=== PATIENT | female | born 1980 | race Caucasian/White ===

== ENCOUNTER 2019-12-11 05:33 | Outpatient (CLI) | payer BC ==
[~2019-12-11] VITALS: Ht 182.9 cm; Wt 100.0 kg
[~2019-12-11 05:33] MED LIST: CEFD300C3 PO; CITA40TA11 PO; CTLP20T PO; DOCU100C37 PO; FERR-57 PO; HYDR-3720 PO; IBUP-1780 PO; OXYC-465 PO; birth control PO
== END 2019-12-11 15:05 | disposition home or self-care (01) ==
LOC: PREOP 05:33
PROVIDERS: ATTEND Obstetrics & Gynecology
DX: Z01.818 Encounter for other preprocedural examination (principal)

== ENCOUNTER 2019-12-14 10:54 | Day surgery (SDC) | payer BC ==
[2019-12-14] VITALS (8 sets, daily range): BP systolic 107–123; BP diastolic 66–82
[~2019-12-14] VITALS: Ht 182.9 cm; Wt 100.0 kg
[2019-12-14] MEDS ORDERED: WATER (STERILE) FOR INJECTION 10 ML ONE (11:20)
[2019-12-14] MEDS ORDERED: ceFAZolin INJECTION 1,000 MG ONE (11:20)
[2019-12-14] MEDS ORDERED: LACTATED RINGERS 1,000 ML IV PRN (11:25)
[2019-12-14 11:27] LABS: BASOPHILS % (AUTO) 0 % (0-10); EOSINOPHILS # (AUTO) 0.1 10^3/uL (0.0-0.3); EOSINOPHILS % (AUTO) 1 % (0-10); HEMATOCRIT 40 % (35-52); HEMOGLOBIN 13.5 G/DL (11.5-16.0); LYMPHOCYTES # (AUTO) 2.1 X 10^3 (1.0-4.0); LYMPHOCYTES % (AUTO) 27 % (12-44); MEAN CORPUSCULAR HEMOGLOBIN 31 PG (25-34); MEAN CORPUSCULAR HGB CONC 34 G/DL (32-36); MEAN CORPUSCULAR VOLUME 91 FL (80-99); MEAN PLATELET VOLUME 10.3 FL (7.4-10.4); MONOCYTES # (AUTO) 0.9 X 10^3 (0.0-1.0); MONOCYTES % (AUTO) 11 % (0-12); NEUTROPHILS # (AUTO) 4.6 X 10^3 (1.8-7.8); NEUTROPHILS % (AUTO) 61 % (42-75); PLATELET COUNT 214 10^3/uL (130-400); WHITE BLOOD COUNT 7.6 10^3/uL (4.3-11.0)
[2019-12-14] MEDS ORDERED: ceFAZolin INJECTION 1,000 MG in WATER (STERILE) FOR INJECTION 10 ML IV ONE (11:30)
[2019-12-14] MEDS ORDERED: ceFAZolin 1,000 MG/SWFI 10 ML IV PUSH IV ONE ×2 (11:30)
[2019-12-14] MEDS ORDERED: ONDANSETRON 4 MG/2 ML (SDV) Z0FRAN ONE (11:58)
[2019-12-14] MEDS ORDERED: fentaNYL INJECTION 100 MCG/2 ML AMP ONE (11:58)
[2019-12-14] MEDS ORDERED: LIDOCAINE PF 2% 5 ML (XYLOCAINE) VIAL ONE (11:58)
[2019-12-14] MEDS ORDERED: proPOfol 200 MG/20 ML (DIPRIVAN) VIAL IV ONE ×2 (11:58→14:44)
[2019-12-14] MEDS ORDERED: SEVOFLURANE (ULTANE) 15 ML INHAL SOLN ONE (11:58)
[2019-12-14] MEDS ORDERED: MIDAZOLAM 2 MG/2 ML (VERSED) VIAL ONE (11:58)
[2019-12-14] MEDS ORDERED: FAMOTIDINE 20MG/2ML IV (PEPCID) IVP ONE (12:00)
[2019-12-14] MEDS ORDERED: ONDANSETRON 4 MG/2 ML (SDV) Z0FRAN IVP ONE (12:00)
[2019-12-14] MEDS ORDERED: SCOPOLAMINE 1.5 MG (TRANSDERM-SCOP) PATCH TD ONE (12:00)
--- OUTSIDE RECORDS SUMMARY | 2019-12-14 12:50 | XMS REPORT | Continuity of Care Document ---
Author Organization Unknown Address Unknown Phone Unavailable Allergies Active Description Code Type Severity Reaction Onset Reported/Identified Relationship to Patient Clinical Status Yes NO KNOWN DRUG ALLERGIES UNKNOWN NO KNOWN DRUG ALLERG Yes NO KNOWN DRUG ALLERGIES UNKNOWN UNKNOWN Yes No Known Drug Allergies [id number] Drug Allergy Unknown N/A 08/05/2009 Medications Medication Packaging Start Date St op Date Route Dosage Sig FENTANYL INJ 100 MCG/2CC VIAL MCG 03/27/2018 03/27/2018 ONCE&0814 Ondansetron 4mg oral DissolveTab (Zofran) MG 03/27/2018 03/27/2018 PRN ONCE NORMAL SALINE 1000CC IV BAG INJ 0.9 % (NS 1000CC IV BAG) ml 03/27/2018 03/27/2018 ONCE&0920 TETANUS,DIPTH,PERT ADULT INJ 0 (ADACEL SYRINGE) ml 05/10/2018 05/10/2018 ONCE&0819 ONDANSETRON VIAL INJ 4 MG/2CC (ZOFRAN 2CC VIAL) MG 05/18/2018 05/18/2018 PRN ONCE NORMAL SALINE 1000CC IV BAG INJ 0.9 % (NS 1000CC IV BAG) ml 05/18/2018 06/02/2018 CONTINUOUSEVERY 0 Hour KETOROLAC VIAL INJ 30 MG/CC (TORADOL VIAL) MG 05/18/2018 05/18/2018 PRN ONCE FENTANYL INJ 100 MCG/2CC VIAL MCG 05/18/2018 05/18/2018 ONCE&1815 NORMAL SALINE 1000CC IV BAG INJ 0.9 % (NS 1000CC IV BAG) ml 05/18/2018 06/02/2018 CONTINUOUSEVERY 0 Hour Problems Date Dx Coded Attending Type Code Diagnosis Diagnosed By 08/07/2009 Ot 642.41 MIL D/NOS PREECLAMP-DELIV 08/07/2009 Ot 644.21 EAR LY ONSET DELIVERY-DEL 08/07/2009 Ot 651.01 TWI N - DELIVERED 08/07/2009 Ot V27.2 DELI MADONNA-TWINS, BOTH LIVE 01/30/2016 ANA LAURA RODRIGUEZ MD, Ot M53. 3 SACROCOCCYGEAL DISORDERS, NOT ELSEWHERE 01/30/2016 ANA LAURA RODRIGUEZ MD, Ot Z79.899 OTHER GIS COORDINATOR (CURRENT) DRUG THERAPY 02/02/2016 Ot 626.8 MENS TRUAL DISORDER NEC 02/02/2016 Ot V64.3 NO P YAMILKA FOR REASONS NEC 02/02/2016 Ot 621.0 POLY P OF CORPUS UTERI 02/02/2016 Ot 626.8 MENS TRUAL DISORDER NEC 02/02/2016 ALEJANDRINA GUADALUPE MD, Ot 626.2 EXCESSIVE MENSTRUATION 02/02/2016 ALEJANDRINA GUADALUPE MD, Ot 626.8 MENSTRUAL DISORDER NEC 02/12/2016 ANA LAURA RODRIGUEZ MD, Ot M53. 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 03/20/2016 ALEJANDRINA GUADALUPE MD, Ot N83.201 UNSPECIFIED OVARIAN CYST, RIGHT SIDE 03/20/2016 ALEJANDRINA GUADALUPE MD Ot N92.0 EXCESSIVE AND FREQUENT MENSTRUATION WITH 03/20/2016 ALEJANDRINA GUADALUPE MD Ot N93.8 OTHER SPECIFIED ABNORMAL UTERINE AND VAG 03/23/2016 ALEJANDRINA GUADALUPE MD, Ot N80.1 ENDOMETRIOSIS OF OVARY 03/23/2016 ALEJANDRINA GUADALUPE MD, Ot 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 03/23/2016 ALEJANDRINA GUADALUPE MD, Ot N83.201 UNSPECIFIED OVARIAN CYST, RIGHT SIDE 03/23/2016 ALEJANDRINA GUADALUPE MD, Ot N92.0 EXCESSIVE AND FREQUENT MENSTRUATION WITH 03/23/2016 COLLINS YANCEY, ALEJANDRINA Schwartz Ot N93.8 OTHER SPECIFIED ABNORMAL UTERINE AND VAG 03/27/2018 Juan Jose Shaffer 813.05 FRACTURE OF HEAD OF RADIUS, CLOSED 03/27/2018 Juan Jose Shaffer S52.122A DISP FX OF HEAD OF LEFT RADIUS, INIT FOR CLOS FX 05/10/2018 LEISURE, JOSE W 681.00 CELLULITIS AND ABSCESS OF FINGER, UNSPECIFIED 05/10/2018 LEISURE, JOSE W 686.9 UNSPECIFIED LOCAL INFECTION OF SKIN AND SUBCUTANEOUS TISSUE 05/10/2018 LEISURE, JOSE W 879.8 OPEN WOUND(S) (MULTIPLE) OF UNSPECIFIED SITE(S) EXCEPT LIMBS, WITHOUT MENTION OF COMPLICATION 05/10/2018 LEISURE, JOSE W 883.0 OPEN WOUND OF FINGERS, WITHOUT MENTION OF COMPLICATION 05/10/2018 LEISURE, JOSE Cochran E906.3 BITE OF OTHER ANIMAL EXCEPT ARTHROPOD 05/10/2018 LEISURE, JOSE Cochran L03.01 1 CELLULITIS OF RIGHT FINGER 05/10/2018 LEISURE, JOSE W L08.9 LOCAL INFECTION OF THE SKIN AND SUBCUTANEOUS TISSUE, UNSPECIFIED 05/10/2018 LEISURE, JOSE Cochran S61.25 6A OPEN BITE OF RIGHT LITTLE FINGER W/O DAMAGE TO NAIL, INIT 05/10/2018 LEISURE, JOSE Cochran W55.01 XA BITTEN BY CAT, INITIAL ENCOUNTER 05/10/2018 LEISURE, JOSE Cochran W55.81 BITTEN BY OTHER MAMMALS 05/18/2018 LEISURE, JOSE W 008.8 INTESTINAL INFECTION DUE TO OTHER ORGANISM, NOT ELSEWHERE CLASSIFIED 05/18/2018 LEISURE, JOSE W 535.0 ACUTE GASTRITIS 05/18/2018 LEISURE, JOSE Cochran A08.4 VIRAL INTESTINAL INFECTION, UNSPECIFIED 05/18/2018 LEISURE, JOSE Cochran A09 INFECTIOUS GASTROENTERITIS AND COLITIS, UNSPECIFIED 12/12/2019 COLLINS YANCEY, ALEJANDRINA Schwartz Ot Z01.818 ENCOUNTER FOR OTHER PREPROCEDURAL EXAMIN Procedures Code Description Performed By Per formed On 74.1 08/05/2009 Results Test Result Range Urinalysis - 11/07/15 15:47 Icotest N/A Negative Urine Volume Urine Volume Sufficient (10mL) Urine-Appearance Clear Clear Urine-Bilirubin Negative Negative Urine-Blood Negative Negative Urine-Color Yellow Colorless-[place] ow Urine-Epithelial Cells 10-20/HPF Urine-Glucose Negative Negative Urine-Ketones Negative Negative Urine-Leukocytes Negative Negative Urine-Nitrite Negative Negative Urine-pH 7.0 5-8.5 Urine-Protein Negative Negative Urine-Specific [place] 1.020 1.000-1 .030 Urine-WBC 0-2/HPF Urobilinogen 1.0 E.U./dL 0.2-1.0 Urine beta human chorionic gonadotropin (hCG) measurement - 03/19/16 11:35 Urine beta human chorionic gonadotropin (hCG) measurem ent NEGATIVE NEGATIVE Methicillin resistant Staphylococcus aur eus (MRSA) screening culture - 03/19/16 11:35 Methicillin resistant Staphylococcus aureus (MRSA) scr eening culture NEG NRG Complete blood count (CBC) with automate d white blood cell (WBC) differential - 03/19/16 11:54 Blood leukocytes automated count (number/volume) 7.4 10*3/uL 4.3-11.0 Blood erythrocytes automated count (number/volume) 4.02 10*6/uL 4.35-5.85 Venous blood hemoglobin measurement (mass/volume) 12.8 g/dL 11.5-16.0 Blood hematocrit (volume fraction) 38 % 35-52 Automated erythrocyte mean corpuscular volume 94 [ foz_us] 80-99 Automated erythrocyte mean corpuscular h emoglobin (mass per erythrocyte) 32 pg 25-34 Automated erythrocyte mean corpuscular h emoglobin concentration measurement (mass/volume) 34 g/dL 32-36 Automated erythrocyte distribution width ratio 12. 2 % 10.0- 14.5 Automated blood platelet count (count/volume) 183 10*3/uL 130-400 Automated blood platelet mean volume measurement 11.5 [foz_us] 7.4-10.4 Automated blood neutrophils/100 leukocytes 59 % 42-75 Automated blood lymphocytes/100 leukocytes 27 % 12-44 Blood monocytes/100 leukocytes 13 % 0-12 Automated blood eosinophils/100 leukocytes 1 % 0-10 Automated blood basophils/100 leukocytes 0 % 0-10 Blood neutrophils automated count (number/volume) 4.3 10*3 1.8-7.8 Blood lymphocytes automated count (number/volume) 2.0 10*3 1.0-4.0 Blood monocytes automated count (number/volume) 0. 9 10*3 0.0-1.0 Automated eosinophil count 0.1 10*3/uL 0 .0-0.3 Automated blood basophil count (count/volume) 0.0 10*3/uL 0.0-0.1 Blood type T Indirect antibody screen pa asa - 03/19/16 11:54 ABO+Rh group AP NRG Transfusion band number [id number] NRG Blood group antibody screen NEGATIVE NR G Lipase - 05/18/18 17:31 Lipase 20 U/L 7-59 Urinalysis - 05/18/18 17:36 Icotest N/A Negative Urine Volume Urine Volume Sufficient (10mL) Urine Yeast No Yeast present Urine-Appearance Clear Clear Urine-Bacteria Negative Urine-Bilirubin Negative Negative Urine-Blood Trace-intact Negative Urine-Color Yellow Colorless-[place] Urine-Epithelial Cells 5-10/HPF Urine-Glucose Negative Negative Urine-Ketones 1+ Negative Urine-Leukocytes Negative Negative Urine-Mucus 4+ Urine-Nitrite Negative Negative Urine-Other Urine Saved if Culture Need ed (48hrs from time of collection) Urine-pH 7.0 5-8.5 Urine-Protein Negative Negative Urine-RBC Rare/HPF Urine-Specific [place] 1.025 1.000-1 .030 Urine-WBC Nothing Seen on Microscopic Urobilinogen 0.2 E.U./dL 0.2-1.0 COVID19 - 12/11/19 12:15 COVID19 NEGATIVE RESULT, test performed at [facility] Complete blood count (CBC) with automate d white blood cell (WBC) differential - 12/14/19 11:15 Blood leukocytes automated count (number/volume) 7.6 10*3/uL 4.3-11.0 Blood erythrocytes automated count (number/volume) 4.36 10*6/uL 4.35-5.85 Venous blood hemoglobin measurement (mass/volume) 13.5 g/dL 11.5-16.0 Blood hematocrit (volume fraction) 40 % 35-52 Automated erythrocyte mean corpuscular volume 91 [ foz_us] 80-99 Automated erythrocyte mean corpuscular h emoglobin (mass per erythrocyte) 31 pg 25-34 Automated erythrocyte mean corpuscular h emoglobin concentration measurement (mass/volume) 34 g/dL 32-36 Automated erythrocyte distribution width ratio 13. 0 % 10.0- 14.5 Automated blood platelet count (count/volume) 214 10*3/uL 130-400 Automated blood platelet mean volume measurement 10.3 [foz_us] 7.4-10.4 Automated blood neutrophils/100 leukocytes 61 % 42-75 Automated blood lymphocytes/100 leukocytes 27 % 12-44 Blood monocytes/100 leukocytes 11 % 0-12 Automated blood eosinophils/100 leukocytes 1 % 0-10 Automated blood basophils/100 leukocytes 0 % 0-10 Blood neutrophils automated count (number/volume) 4.6 10*3 1.8-7.8 Blood lymphocytes automated count (number/volume) 2.1 10*3 1.0-4.0 Blood monocytes automated count (number/volume) 0. 9 10*3 0.0-1.0 Automated eosinophil count 0.1 10*3/uL 0 .0-0.3 Automated blood basophil count (count/volume) 0.0 10*3/uL 0.0-0.1 Encounters ACCT No. Visit Date/Time Discharge Status Pt. Type Provider Facility Loc./Unit Complaint [id number] 11/13/2019 13:23:00 11/13/2019 23:59 :00 DIS Outpatient ALEJANDRINA GUADALUPE [id number] 05/14/2019 11:37:00 05/14/2019 23:59 :00 DIS Outpatient EstradaLilaa [id number] 03/22/2019 13:48:00 03/22/2019 23:59: 00 DIS Outpatient Estrada Tonya [id number] 01/31/2019 10:11:00 01/31/2019 23:59: 00 DIS Outpatient UNLISTEDDONIS [id number] 09/26/2018 10:30:00 09/26/2018 23:59: 00 DIS Outpatient ALEJANDRINA GUADALUPE [id number] 05/18/2018 17:10:00 05/18/2018 19:30: 00 DIS Outpatient JOSE GOLDBERG [facility] ER [id number] 05/10/2018 07:48:00 05/10/2018 08:12: 00 DIS Outpatient JOSE GOLDBERG [id number] 03/27/2018 08:06:00 03/27/2018 10:15: 00 DIS Outpatient Edmund [facility] ER [id number] 01/26/2018 10:56:00 01/26/2018 23:59: 00 DIS Outpatient SELF, PHY [id number] 12/11/2019 11:45:13 Document Registration [id number] 03/21/2019 10:29:47 Document Registration [id number] 03/27/2018 08:15:57 Document Registration [id number] 11/07/2015 15:19:00 Document Registration [id number] 12/11/2019 05:33:00 020 15:05:00 DIS Outpatient ALEJANDRINA GUADALUPE MD [facility] PREOP POST [place] ULCER NON-HEALING [id number] 03/19/2016 11:21:00 016 09:00:00 DIS Outpatient ALEJANDRINA GUADALUPE MD [facility] PELVIC MASS; REBECCA Ferrell [id number] 03/16/2016 05:42:00 016 16:14:00 DIS Outpatient ALEJANDRINA GUADALUPE MD [facility] PREOP PELVIC MASS; REBECCA Ferrell [id number] 01/30/2016 08:45:00 016 09:47:00 DIS Outpatient ANA LAURA RODRIGUEZ MD [facility] CARD SACROCOCCYGEAL DISORDER [id number] 10/31/2013 09:55:00 014 23:59:59 CLS Outpatient ALEJANDRINA GUADALUPE MD [facility] DUB [id number] 12/14/2019 13:00:00 P EN Preadmit ALEJANDRINA GUADALUPE MD [facility] POST [place]E ULCER NON-HE ALING [id number] 06/30/2011 12:11:00 Document Registration [id number] 06/30/2011 07:00:00 Document Registration [id number] 08/05/2009 13:17:00 Document Registration
--- OUTSIDE RECORDS SUMMARY | 2019-12-14 12:50 | XMS REPORT ---
Author Author [employer] [facility] [employer] [facility] [employer] Address [address] [place] [address] Care Team Providers Care Education Professor Name Role Phone MELECIO, MINI A Unavailable UNLISTED, UNLISTED Unavailable Unavailable UNLISTED, UNLISTED Unavailable Unavailable UNLISTED, UNLISTED Unavailable Unavailable COLLINS YANCEY, ALEJANDRINA Unavailable Unavailable COLLINS YANCEY, ALEJANDRINA Unavailable Unavailable COLLINS YANCEY, ALEJANDRINA Unavailable Unavailable MELECIO, MINI Unavailable Unavailable MELECIO, MINI Unavailable Unavailable MELECIO, MINI Unavailable Unavailable COLLINS YANCEY, ALEJANDRINA Unavailable Unavailable COLLINS YANCEY, ALEJANDRINA Unavailable Unavailable COLLINS YANCEY, ALEJANDRINA Unavailable Unavailable COLLINS YANCEY, ALEJANDRINA G Unavailable Unavailable PAONI, OMEGA Unavailable Unavailable PAONI, OMEGA Unavailable Unavailable PAONI, OMEGA Unavailable Unavailable Unavailable Unavailable Unavailable Unavailable Allergies Allergy Reported Allergen(s) Allergy Type Date of Reaction(s) Care Facility Classificati Onset Provider on Unclassified NO KNOWN DRUG ALLERGIES NO KNOWN [facility] (17 sources) DRUG [facility] #1 ALLERGIES, of [facility] ([id number]) Encounters Encounter Date Encounter Type Encounter Diagnosis Care Provider Facility Start: Patient encounter OMEGA DUNAWAY [facility] strict #1 12-11-2019 procedure [facility] End: 12-11-2019 Start: Patient encounter ALEJANDRINA GUADALUPE [facility] [address] 12-11-2019 procedure [facility] [place] End: 12-11-2019 Start: Patient encounter ALEJANDRINA GUADALUPE [facility] #1 11-13-2019 procedure [facility] End: 11-13-2019 Start: Patient encounter [facility] strict #1 05-14-2019 procedure [facility] ([id number]) End: 05-14-2019 Start: Patient encounter [facility] strict #1 03-22-2019 procedure [facility] ([id number]) End: 03-22-2019 Start: Patient encounter [facility] 03-21-2019 procedure [place] viey[place] [facility] dickson ([id number]) End: 03-21-2019 Start: Patient encounter UNLISTED UNLISTED [facility] District #1 01-31-2019 procedure of [facility] ([id number]) End: 02-01-2019 Start: Patient encounter NA [facility] strict #1 05-18-2018 procedure of [facility] ([id number]) End: 05-18-2018 Start: Patient encounter [facility] #1 05-10-2018 procedure of [facility] ([id number]) End: 05-10-2018 Start: Patient encounter JONEL [facility] strict #1 03-27-2018 procedure of [facility] ([id number]) End: 03-27-2018 Start: Patient encounter LATA GARNER [facility] strict #1 01-26-2018 of [facility] ([id number]) End: 01-27-2018 Encounter for other ALEJANDRINA GUADALUPE [facility] [address] [facility] YANCEY [facility] ([id number]) Medical Equipment No Information Goals No Information Immunizations Immunizatio Immunization Notes Care Provider Facility n Date 05-10-2018 [facility] # 1 of [facility] ([id number]) Interventions No Information Medications Medication Drug Dates Sig Sig (Original) Class(es) (Normalized) FENTANYL INJ 100 MCG/2CC Start: VIAL 03-27-2018 (1 source) End: 03-27-2018 FENTANYL INJ 100 MCG/2CC Start: VIAL 05-18-2018 (1 source) End: 05-18-2018 KETOROLAC VIAL INJ 30 Start: MG/CC (TORADOL VIAL) 05-18-2018 (1 source) End: 05-18-2018 Normal saline Start: (2 sources) 05-18-2018 End: 06-02-2018 Start: 03-27-2018 End: 03-27-2018 Ondansetron 4mg oral Start: DissolveTab (Zofran) 03-27-2018 (1 source) End: 03-27-2018 ONDANSETRON VIAL INJ 4 Start: MG/2CC (ZOFRAN 2CC VIAL) 05-18-2018 (1 source) End: 05-18-2018 Payers Date Payer Normalized Payer Policy ID [id number] [employer] [employer] [facility] Plan of Treatment The data below is from unstructured sources Discharge Date 03/16/16 4:14pm Prescriptions See Medication Section Discharge Date 03/20/16 9:00am Instructions/Education Provided Hyst erectomy (DC) Prescriptions See Medication Section Discharge Date 03/20/16 9:00am Instructions/Education Provided Hyst erectomy (DC) Prescriptions See Medication Section Problems Active Problems Problem Problem Date Last Documented Episodic/Chr Provider Classificati Recorded Date onic on Fracture of Displaced fracture of head of left Episodic JONEL upper limb radius, initial encounter for AMERICO EK (5 sources) closed fracture ; Translati ons: [Closed fracture of head of radius] Gastritis Acute gastritis Episodic LYNIETA and LEISURE duodenitis (2 sources) Intestinal Infectious gastroenteritis and Episodic LYNIETA infection colitis, unspecified ; LEISURE (4 sources) Translations: [Viral intest inal infection, unspecified] Open wounds Open bite of right little finger Episodic LYNIETA of without damage to nail, initial LEI SURE extremities encounter ; Translations: [ Open (10 sources) wound of finger(s), without mention of complication] Open wounds Open wound(s) (multiple) of Episodic LYNIETA of head; unspecified site(s), without LEISUR E neck; and mention of complication trunk (4 sources) Skin and Cellulitis of right finger ; Episodic LYNIETA subcutaneous Translations: [Cellulitis and LEISU RE tissue abscess of finger, unspecif ied] infections (6 sources) Past or Other Problems Problem Problem Date Last Documented Episodic/Chr Provider Classificati Recorded Date onic on External Bitten by cat, initial encounter ; LYNIETA cause codes: Translations: [Bite of other animal LEISURE Natural/envi except arthropod] ronment (6 sources) Unclassified Bitten by other mammals LYNIETA (4 sources) LEISURE Procedures The data below is from unstructured sourcesNo known history of procedures. Results Test Name Value Interpreta Reference Facilit Date tion Range y Time not yet categorized on 2019-12-11 COVID19 Negative Invalid Hospita Interpreta l 020 tion Code Distric 08:15-0 t #1 of [facility] ([id number]) urinalysis on 2018-05-18 Clarity (U) Clear Invalid Clear Hospita Interpreta l 019 tion Code Distric 18:36-0 t #1 of [facility] ([id number]) Color (U) Yellow Invalid [facility] Yellow l 019 tion Code Distric 18:36-[address] t [address] [place] [address] ([id number]) Epithelial 5-10/HPF Abnormal [facility] cells.squamous l 019 LM.HPF (Urine sed) Distric 18:36-0 [#/Area] t [address] [place] [address] ([id number]) Leukocyte esterase Negative Invalid Negative [facility] 05-02 7 Test strip Ql (U) Interpreta l 019 tion Code Distric 18:36-0 t [address] [place] [address] ([id number]) Protein (U) Negative Invalid Negative [facility] [Mass/Vol] Interpreta l 019 tion Code Distric 18:36-0 t [address] [place] [address] ([id number]) RBC LM.HPF (Urine Rare/HPF Abnormal [facility] sed) [#/Area] l 019 Distric 18:36-0 t [address] [place] [address] ([id number]) Specific gravity (U) 1.025 Invalid 1.000-1.03 Hospita 0 [Rel density] Interpreta 0 l 019 tion Code Distric 18:36-0 t [address] [place] [address] ([id number]) WBC LM.HPF (Urine Nothing Seen on Microscopic Invalid Hospi sed) [#/Area] Interpreta l 019 tion Code Distric 18:36-0 t [address] [place] [address] ([id number]) other on 2018-05-18 Albumin BCG dye 5.0 Invalid 3.6-5.1 [facility] [Mass/Vol] Interpreta g/dL l 019 tion Code Distric 18:31-0 t [address] [place] [address] ([id number]) Bacteria LM Ql Negative Invalid [facility] (Urine sed) Interpreta l 019 tion Code Distric 18:36-0 t [address] [place] [address] ([id number]) Bilirubin Confirm Ql N/A Abnormal Negative [facility] (U) l 019 Distric 18:36-0 t #1 of [facility] ([id number]) Bilirubin Ql (U) Negative Invalid Negative Hospita Interpreta l 019 tion Code Distric 18:36-0 t #1 of [facility] () Erythrocyte 12.5 % Invalid 11.6-14.8 Hospita distribution width Interpreta % l 019 (RBC) [Ratio] tion Code Distric 18:31-0 t #1 of [facility] () GFR/1.73 sq 84 mL/min/{1.73_m2} Invalid >59 Hospita 0 M.predicted MDRD Interpreta mL/min/1.7 l 019 (S/P/Bld) [Vol tion Code 3m2 Distric 18:31-0 rate/Area] t #1 of [facility] () Globulin (S) 3.5 g/dL Invalid 2.3-3.5 Hospita [Mass/Vol] Interpreta g/dL l 019 tion Code Distric 18:31-0 t #1 of [facility] () Glucose Test strip Negative Invalid Negative Hospita 05-02 7-2 (U) [Mass/Vol] Interpreta l 019 tion Code Distric 18:36-0 t #1 of [facility] ([id number]) HCO3 (P) [Moles/Vol] 22 Invalid 22-33 Hospita Interpreta mEq/L l 019 tion Code Distric 18:31-0 t #1 of [facility] ([id number]) Hemoglobin Ql (U) Trace-intact Abnormal Negative Hospita l 019 Distric 18:36-0 t #1 of [facility] ([id number]) Ketones (U) 1+ Abnormal Negative Hospita [Mass/Vol] l 019 Distric 18:36-0 t #1 of [facility] ([id number]) Lipase [Catalytic 20 U/L Invalid 7-59 U/L Hospita 05-18 activity/Vol] Interpreta l 019 tion Code Distric 18:31-0 t #1 of [address] [facility] ([id number]) MCHC (RBC) 34.3 g/dL Invalid 32.0-36.0 Hospita [Mass/Vol] Interpreta g/dL l 019 tion Code Distric 18:31-0 t #1 of [facility] ([id number]) Mucus Ql (Urine sed) 4+ Abnormal Hospita 05-18 l 019 Distric 18:36-0 t #1 of [address] [facility] ([id number]) Nitrite Ql (U) Negative Invalid Negative Hospita Interpreta l 019 tion Code Distric 18:36-0 t #1 of [facility] ([id number]) Osmolality Calc 300 High 280-295 Hospita [Osmolality] l 019 Distric 18:31-0 t #1 of [facility] ([id number]) pH (U) 7.0 [pH] Invalid 5-8.5 Hospita Interpreta l 019 tion Code Distric 18:36-0 t #1 of [facility] ([id number]) Platelet mean volume 10.1 fL High 7.4-10.0 Hospita (Bld) [Entitic vol] fL l 019 Distric 18:31-0 t #1 of [facility] ([id number]) Urine Volume Urine Volume Sufficient (10mL) Invalid Hospita Interpreta l 019 tion Code Distric 18:36-0 t [address] [place] [address] ([id number]) Urobilinogen Qn (U) 0.2 {Luz Maria'U}/dL Abnormal 0.2-1.0 Hospi ta l 019 Distric 18:36-0 t [address] [place] [address] ([id number]) Yeast.budding Ql No Yeast present Invalid Hospita 05-022 (Urine sed) Interpreta l 019 tion Code Distric 18:36-0 t #1 of [facility] ([id number]) Urine Saved if Culture Needed (48hrs from Abnormal Hosp gina time of collection) l 019 Distric 18:36-0 t [address] [place] [address] ([id number]) metabolic panel on 2018-05-18 ALP [Catalytic 88 U/L Invalid 35-130 U/L Hospita activity/Vol] Interpreta l 019 tion Code Distric 18:31-0 t [address] [place] [address] ([id number]) ALT [Catalytic 20 U/L Invalid 6-45 U/L Hospita 05-18- activity/Vol] Interpreta l 019 tion Code Distric 18:31-0 t [address] [place] [address] ([id number]) Anion gap 19 mmol/L High 6-14 Hospita 17-2 [Moles/Vol] l 019 Distric 18:31-0 t [address] [place] [address] () AST [Catalytic 26 U/L Invalid 2-40 U/L Hospita activity/Vol] Interpreta l 019 tion Code Distric 18:31-0 t [address] [place] [address] ([id number]) Bilirubin [Mass/Vol] 0.7 mg/dL Invalid 0.2-1.2 Hospita -2 Interpreta mg/dL l 019 tion Code Distric 18:31-0 t [address] [place] [address] () Calcium [Mass/Vol] 9.8 mg/dL Invalid 8.3-10.4 Hospita - 7-2 Interpreta mg/dL l 019 tion Code Distric 18:31-0 t [address] [place] [address] ([id number]) Chloride [Moles/Vol] 108 mmol/L Invalid 95-114 Hospita 0 1-17-2 Interpreta mmol/L l 019 tion Code Distric 18:31-0 t [address] [place] [address] ([id number]) Creatinine 0.78 mg/dL Invalid 0.50-1.50 Hospita 17-2 [Mass/Vol] Interpreta mg/dL l 019 tion Code Distric 18:31-0 t [address] [place] [address] ([id number]) Glucose [Mass/Vol] 102 mg/dL Invalid 70-110 Hospita 01-1 7-2 Interpreta mg/dL l 019 tion Code Distric 18:31-0 t [address] [place] [address] ([id number]) Potassium 4.1 mmol/L Invalid 3.5-5.3 Hospita 17-2 [Moles/Vol] Interpreta mmol/L l 019 tion Code Distric 18:31-0 t [address] [place] [address] ([id number]) Protein [Mass/Vol] 8.5 g/dL High 6.0-8.3 Hospita 01-1 7-2 g/dL l 019 Distric 18:31-0 t #1 of [facility] ([id number]) Sodium [Moles/Vol] 145 mmol/L Invalid 134-148 Hospita Interpreta mmol/L l 019 tion Code Distric 18:31-0 t #1 of [facility] ([id number]) Urea nitrogen 14 mg/dL Invalid 5-25 mg/dL Hospita [Mass/Vol] Interpreta l 019 tion Code Distric 18:31-0 t [address] [place] [address] ([id number]) hematology on 2018-05-18 Basophils (Bld) 0.0 10*3/uL Invalid 0.0-0.2 Hospita 05-18 [#/Vol] Interpreta K/uL l 019 tion Code Distric 18:31-0 t [address] [place] [address] ([id number]) Basophils/100 WBC 0.10 % Invalid 0.00-2.50 Hospita 05-18 (Bld) Interpreta % l 019 tion Code Distric 18:31-0 t [address] [place] [address] ([id number]) Eosinophils (Bld) 0.0 10*3/uL Invalid 0.0-0.7 Hospita [#/Vol] Interpreta K/uL l 019 tion Code Distric 18:31-0 t [address] [place] [address] ([id number]) Eosinophils/100 WBC 0.1 % Invalid 0.0-7.0 % Hospita (Bld) Interpreta l 019 tion Code Distric 18:31-0 t #1 of [facility] ([id number]) Hematocrit (Bld) 40.0 % Invalid 36.0-46.0 Hospita [Volume fraction] Interpreta % l 019 tion Code Distric 18:31-0 t [address] [place] [address] ([id number]) Hemoglobin (Bld) 13.7 g/dL Invalid 13.0-15.0 Hospita [Mass/Vol] Interpreta g/dL l 019 tion Code Distric 18:31-0 t [address] [place] [address] ([id number]) Lymphocytes (Bld) 1.35 10*3/uL Invalid 0.60-3.40 Hospita [#/Vol] Interpreta K/uL l 019 tion Code Distric 18:31-0 t #1 of [facility] ([id number]) Lymphocytes/100 WBC 10.6 % Invalid 10.0-50.0 Hospita (Bld) Interpreta % l 019 tion Code Distric 18:31-0 t #1 of [facility] ([id number]) MCH (RBC) [Entitic 31.2 pg High 27.0-31.0 Hospita 05-02-2 mass] pg l 019 Distric 18:31-0 t #1 of [facility] ([id number]) MCV (RBC) [Entitic 91.1 fL Invalid 80.0-97.0 Hospita 05-02 vol] Interpreta fL l 019 tion Code Distric 18:31-0 t #1 of [facility] (75659) Monocytes (Bld) 0.5 10*3/uL Invalid 0.0-0.9 Hospita 05-18 [#/Vol] Interpreta K/uL l 019 tion Code Distric 18:31-0 t #1 of [facility] ([id number]) Monocytes/100 WBC 3.5 % Invalid 0.0-12.0 % Hospita 05-02 (Bld) Interpreta l 019 tion Code Distric 18:31-0 t #1 of [facility] ([id number]) Neutrophils (Bld) 10.89 10*3/uL High 2.00-6.90 Hospita 0 2 [#/Vol] K/uL l 019 Distric 18:31-0 t #1 of [facility] ([id number]) Neutrophils/100 WBC 85.7 % High 37.0-80.0 Hospita (Bld) % l 019 Distric 18:31-0 t #1 of [facility] ([id number]) Platelets (Bld) 270 10*3/uL Invalid 150-400 Hospita 05-18 [#/Vol] Interpreta K/uL l 019 tion Code Distric 18:31-0 t #1 of [facility] ([id number]) RBC (Bld) [#/Vol] 4.39 10*6/uL Invalid 3.60-5.00 Hospita -2 Interpreta M/uL l 019 tion Code Distric 18:31-0 t #1 of [facility] ([id number]) WBC (Bld) [#/Vol] 12.71 10*3/uL High 5.00-10.00 Hospita 05-18-2 K/uL l 019 Distric 18:31-0 t #1 of [facility] ([id number]) Social History No Information Vital Signs The data below is from unstructured sources Vital Response Date/Time Height (Feet) 6 feet 4:07pm Height (Inches) 0.00 inches 03/16/2016 4:07pm Height (Calculated Centimeters) 182. 488865 cm 03/16/2016 4:07pm Weight (Pounds) 185 pounds 03/16/2016 4:07pm Weight (Ounces) 0.0 oz 1 05/16/2015 4:07pm Weight (Calculated Grams) 97931.59 gm 03/16/2016 4:07pm Weight (Calculated Kilograms) 83.914 589 kilograms 03/16/2016 4:07pm Calculated BMI 25.1 03/02 4:07pm Vital Response Date/Time Temperature (Fahrenheit) 98.1 degree s F (97.6 - 99.5) 03/20/2016 8:30am Temperature (Calculated Celsius) 36. 86542 degrees C (36.4 - 37.5) 03/20/2016 8:30am Temperature Source Temporal 03/20/2016 8:30am Pulse Rate (adult) 81 bpm (60 - 90) 03/20/2016 8:30am Respiratory Rate 20 bpm (12 - 24) 03/20/2016 8:30am O2 Sat by Pulse Oximetry 97 % (88 - 100) 03/20/2016 3:40am Blood Pressure 111/63 mm Hg 03/20/2016 8:30am Blood Pressure Mean 79 mm Hg 03/20/2016 8:30am Pain Numeric Pain Scale 4 8:30am Pain Intensity 9 2015 8:00pm Height (Feet) 6 feet 1:17pm Height (Inches) 0.00 inches 03/19/2016 1:17pm Height (Calculated Centimeters) 182. 967623 cm 03/19/2016 1:17pm Weight (Pounds) 185 pounds 03/19/2016 1:17pm Weight (Ounces) 0.0 oz 1 05/19/2015 1:17pm Weight (Calculated Grams) 41343.59 gm 03/19/2016 1:17pm Weight (Calculated Kilograms) 83.914 589 kilograms 03/19/2016 1:17pm Calculated BMI 25.1 03/02 1:17pm Vital Response Date/Time Temperature (Fahrenheit) 98.1 degree s F (97.6 - 99.5) 03/20/2016 8:30am Temperature (Calculated Celsius) 36. 06424 degrees C (36.4 - 37.5) 03/20/2016 8:30am Temperature Source Temporal 03/20/2016 8:30am Pulse Rate (adult) 81 bpm (60 - 90) 03/20/2016 8:30am Respiratory Rate 20 bpm (12 - 24) 03/20/2016 8:30am O2 Sat by Pulse Oximetry 97 % (88 - 100) 03/20/2016 3:40am Blood Pressure 111/63 mm Hg 03/20/2016 8:30am Blood Pressure Mean 79 mm Hg 03/20/2016 8:30am Pain Numeric Pain Scale 4 8:30am Pain Intensity 9 2015 8:00pm Height (Feet) 6 feet 1:17pm Height (Inches) 0.00 inches 03/19/2016 1:17pm Height (Calculated Centimeters) 182. 455067 cm 03/19/2016 1:17pm Weight (Pounds) 185 pounds 03/19/2016 1:17pm Weight (Ounces) 0.0 oz 1 05/19/2015 1:17pm Weight (Calculated Grams) 05178.59 gm 03/19/2016 1:17pm Weight (Calculated Kilograms) 83.914 589 kilograms 03/19/2016 1:17pm Calculated BMI 25.1 03/02 1:17pm Functional Status The data below is from unstructured sources Query Response Date Maxwell rded Patient Orientation Person Place Time Situation Normal For Age March 20, 2016 9:31am Mental Status No Information Advance Directives Directive Response Recor ded Date/Time Advance Directives No 4:05pm Health Care Power of Multimedia Artist No 03/16/16 4:05pm Organ Donor Yes 03/16/16 4:05pm Resuscitation Status Full Code 03/16/16 4:05pm Directive Response Recor ded Date/Time Advance Directives No 1:16pm Health Care Power of Multimedia Artist No 03/19/16 1:16pm Organ Donor Yes 03/19/16 1:16pm Resuscitation Status Full Code 03/19/16 1:16pm Discharge Instructions No hospital discharge instructions. Patient Instructions Physician Instructions New, Converted or Re-Newed RX: RX on Chart Patient Instructions: as directed Return to The Hospital For: as directed Discharge Diet: No Restrictions Activity as Tolerated: No Follow Up Appt: return to clinic on Tuesday, March 22, 2016 at 930 a.m. for staple removal Call to make follow up appt. for patient in 4 weeks. Activity: Rest for 24 hours, than as tolerated. Wound Care: May remove Band-Aid tomorrow. Replace as desired. Keep incisions clean and dry. Wash daily with soap and water. Please call in RX to patient pharmacy. Diet: As tolerated-Clear Liquids only if nauseated. Tomorrow, may shower or tub bathe as desired. No driving for 24 hours, no alcoholic beverages for 24 hours, and nothing per vagina (no tampons, douching, or intercourse) for 8 weeks. Patient to return to the clinic as soon as possible for: Temperature greater than 101F, Severe Pain, Foul discharge from incision or vagina, Excessive Bleeding (more than a period). Care Plan Patient Instructions:: as directed Additional Source Comments This clinical document has been generated using [employer] software that has been certified by the Office of the National Coordinator for Health Information Technology (ONC 15.99.04.3023.Diam.31.00.0.538757) and the National Committee for Wig Sales Consultant (NCQA, as an eMeasure certified technology). FOR RECORDS PERTAINING TO PATIENTS WHO ARE OR HAVE BEEN ENROLLED IN A CHEMICAL D EPENDENCY/SUBSTANCE ABUSE PROGRAM, SOME INFORMATION MAY BE OMITTED. This clinica l summary was aggregated from multiple sources. Caution should be exercised in using it in the provision of clinical care. This summary normalizes information from multiple sources, and as a consequence, information in this document may ma terially change the coding, format and clinical context of patient data. In nina tion, data may be omitted in some cases. CLINICAL DECISIONS SHOULD BE BASED ON T HE PRIMARY CLINICAL RECORDS. [facility] [employer] [facility]. provides no warranty or guara ntee of the accuracy or completeness of information in this document.The followi ng information is based on time limited clinical information
--- NOTE | 2019-12-14 13:59 | Progress Note-Pre Operative ---
Pre-Operative Progress Note H&P Reviewed The H&P was reviewed, patient examined and no changes noted. Date Seen by Provider: Dec 14, 2019 Time Seen by Provider: 13:59 Date H&P Reviewed: Dec 14, 2019 Time H&P Reviewed: 13:59 Pre-Operative Diagnosis: NON HEALING POSTERIOR FOURCHETTE/POST VAG WALL ULCER ALEJANDRINA GUADALUPE MD Dec 14, 2019 13:59
[2019-12-14] MEDS ORDERED: OXYC1TAB87 PO (14:01)
--- NOTE | 2019-12-14 14:01 | Progress Note-Post Operative ---
Post-Operative Progess Note Surgeon (s)/Building Service Worker (s) Surgeon ALEJANDRINA GUADALUPE MD Building Service Worker: NONE Pre-Operative Diagnosis NON HEALING POSTERIOR FOURCHETTE/POST VAG WALL ULCER Post-Operative Diagnosis SAME WITH PATH PENDING Procedure & Operative Findings Date of Procedure 12/14/19 Procedure Performed/Findings PARTIAL VAGINECTOMY Anesthesia Type GETA Estimated Blood Loss Estimated blood loss (mL): 23 cc Specimens/Packing Specimens Removed POST FOURCHETTE/PPOST VAG WALL UCLER ALEJANDRINA GUADALUPE MD Dec 14, 2019 14:01
--- NOTE | 2019-12-14 14:04 | Discharge Inst-Surgical ---
Discharge Inst-Surgical Depart Medication/Instructions New, Converted or Re-Newed RX: RX on Chart Consults/Follow Up Patient Instructions: DIRECTED Orders & Referrals Follow Up Appt: Call to make follow up appt. for patient in 2 weeks. Activity: Rest for 24 hours, than as tolerated. Please call in RX to patient pharmacy. Diet: As tolerated-Clear Liquids only if nauseated. shower or tub bathe as desired. No driving for 24 hours, no alcoholic beverages for 24 hours, and nothing per vagina (no tampons, douching, or intercoarse) for 2 weeks. Patient to return to the clinic as soon as possible for: Temperature greater than 101F, Severe Pain, Foul discharge from incision or vagina, Excessive Bleeding (more than a period). Activity Activity as Tolerated: No Diet Discharge Diet: No Restrictions ALEJANDRINA GUADALUPE MD Dec 14, 2019 14:04
[2019-12-14] MEDS ORDERED: morphine INJ 10 MG/ML 1ML (SYR OR VIAL) ONE (14:50)
--- NOTE | 2019-12-14 14:50 | Anesthesia-General Post-Op ---
General Patient Condition Mental Status/LOC: Same as Preop Cardiovascular: Satisfactory Nausea/Vomiting: Absent Respiratory: Satisfactory Pain: Controlled Complications: Absent Post Op Complications Complications None Follow Up Care/Instructions Patient Instructions None needed. Anesthesia/Patient Condition Patient Condition Patient is doing well, no complaints, stable vital signs, no apparent adverse anesthesia problems. No complications reported per nursing. LANE VALERO CRNA Dec 14, 2019 14:50
[2019-12-14] MEDS ORDERED: MEPERIDINE (DEMEROL) INJ 50 MG/ML IVP ONE (15:00)
[2019-12-14] MEDS ORDERED: ONDANSETRON 4 MG/2 ML (SDV) Z0FRAN IVP PRN (15:00)
[2019-12-14] MEDS ORDERED: morphine INJ 10 MG/ML 1ML (SYR OR VIAL) IVP ONE (15:00)
--- NOTE | 2019-12-14 21:20 | OPERATIVE REPORT ---
DATE OF SERVICE: 12/14/2019 PREOPERATIVE DIAGNOSES: Nonhealing posterior fourchette and posterior vaginal wall ulceration. 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 OPERATIVE PROCEDURE: Partial vaginectomy/posterior fourchette ectomy for removal of ulcerative nonhealing lesion. OPERATIVE DESCRIPTION: With the patient in supine position under satisfactory general anesthesia, she was repositioned in dorsal lithotomy position in the [facility] stirrups and prepped and draped in the usual fashion for vaginal surgery. Retraction sutures were placed in the inferior labia minora on each side and sutured to the inner thigh to retract and expose the posterior fourchette. 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 This entire lesion was excised by making an inverted triangle incision, approximately a cm laterally from the midline on each side of the ulcer down on to the perineum/perineal body and then an upright triangle using the same base and extending back just past the hymenal ring. That piece of tissue with the ulcer was incised and dissected under the ulcer to remove the ulceration completely. With that lesion removed, the deep tissue was closed with interrupted 2-0 Vicryl pop-off sutures and then the skin defect was closed with a baseball stitch running from left to right across the perineal body, making a relaxing incision in order to remove the piece of tissue in its entirety DICTATION ENDS HERE Job ID: [id number] DocumentID: [id number] Dictated Date: 12/14/2019 14:43:26 [employer] Date: 12/14/2019 21:19:40 Dictated By: ALEJANDRINA GUADALUPE MD
== END 2019-12-14 16:00 | disposition home or self-care (01) ==
LOC: SDC 10:54
PROVIDERS: ATTEND Obstetrics & Gynecology
DX: N76.5 Ulceration of vagina (principal); F32.9 Major depressive disorder, single episode, unspecified; F41.9 Anxiety disorder, unspecified; E66.9 Obesity, unspecified; Z68.29 Body mass index [BMI] 29.0-29.9, adult; Z79.899 Other long term (current) drug therapy
CPT/HCPCS: 36415; 85025; 87081; 88305; 88312

== ENCOUNTER → 2020-10-14 | Outpatient (CLI) | payer BC ==
[~2020-10-14] MED LIST changes: -OXYC-465 PO; +OXYC-556 PO; +OXYC1TAB87 PO
--- NOTE | 2020-10-14 08:59 | Diagnostic Imaging Report ---
INDICATION: Left wrist fracture followup. TECHNIQUE/COMPARISON: AP, lateral, and oblique views of the left wrist were obtained. There is no prior study for comparison. FINDINGS: An overlying cast is in place. A comminuted distal radial fracture is noted with slight impaction but no significant angulation. Ulnar styloid avulsion is noted. IMPRESSION: Comminuted distal radial fracture appears in near anatomic alignment with slight impaction. Ulnar styloid avulsion is noted. There is no prior film for comparison. Fine detail is limited by the overlying cast. Dictated by: Dictated on workstation # [id number]
== END ==
LOC: RAD FS 08:30
PROVIDERS: ATTEND Nurse Practitioner
DX: S52.592D Other fractures of lower end of left radius, subsequent encounter for closed fracture with routine healing (principal); S52.615D Nondisplaced fracture of left ulna styloid process, subsequent encounter for closed fracture with routine healing; X58.XXXA Exposure to other specified factors, initial encounter
CPT/HCPCS: 73100

== ENCOUNTER → 2020-10-28 | Outpatient (CLI) | payer BC ==
--- NOTE | 2020-10-28 10:08 | Diagnostic Imaging Report ---
EXAMINATION: Left wrist, 2 views INDICATION: Follow-up of left wrist fracture. COMPARISON: Prior wrist radiographs performed on 10/14/2020. FINDINGS: Casting material has been removed. Again demonstrated is a partially impacted and comminuted fracture of the distal radial metadiaphysis, with mild apex volar angulation. Fracture lines are still apparent, with suggestion of minimal periosteal reaction along the lateral margin of the fracture. Ulnar styloid avulsion fracture is also again demonstrated, without evidence of periosteal reaction or bony bridging formation. No new fracture or acute osseous abnormality is identified. Carpal configuration is normal. There is mild edema in the wrist soft tissues. No radiopaque foreign body is demonstrated. IMPRESSION: No significant change in impacted fracture of the distal radial metadiaphysis or ulnar styloid avulsion fracture. Dictated by: Dictated on workstation # [id number]
== END ==
LOC: RAD FS 09:45
PROVIDERS: ATTEND Nurse Practitioner
DX: S52.592A Other fractures of lower end of left radius, initial encounter for closed fracture (principal); S52.615A Nondisplaced fracture of left ulna styloid process, initial encounter for closed fracture; X58.XXXA Exposure to other specified factors, initial encounter
CPT/HCPCS: 73100

== ENCOUNTER → 2020-11-11 | Outpatient (CLI) | payer BC ==
--- NOTE | 2020-11-11 09:55 | Diagnostic Imaging Report ---
INDICATION: Fracture Compared to 10/28/2020 FINDINGS: There has been increased endosteal and periosteal new bone formation associated with healing distal radial fracture dorsal angulation is minimal and is also improved. Ulnar styloid fracture showed no obvious change. No new abnormality. IMPRESSION: Further partial healing distal radial fracture with slight improvement in alignment. No adverse development. Ulnar styloid fracture unchanged. Dictated by: Dictated on workstation # [id number]
== END ==
LOC: RAD FS 08:32
PROVIDERS: ATTEND Nurse Practitioner
DX: S52.592D Other fractures of lower end of left radius, subsequent encounter for closed fracture with routine healing (principal); S52.615D Nondisplaced fracture of left ulna styloid process, subsequent encounter for closed fracture with routine healing; X58.XXXD Exposure to other specified factors, subsequent encounter
CPT/HCPCS: 73100